=== PATIENT | male | born 1995 | race Caucasian/White ===

== ENCOUNTER 2021-05-29 18:59 | Emergency (ER) | payer OTHER, MEDICAID ==
--- NOTE | 2021-05-29 19:00 | NUR ---
BROUGHT IN BY [facility] TO BOOK AND BLOOD DRAW, PT REFUSED TO SIGN FOR BLOOD DRAW. PT REFUSED TO GIVE ANY INFORMATION, REFUSED ALL VITALS.
--- NOTE | 2021-05-29 19:15 | NUR ---
Patient given written and verbal discharge instructions and verbalizes understanding. ER MD discussed with patient the results and treatment provided. Patient in stable condition. ID arm band removed. Patient educated on pain management and to follow up with PMD. Pain Scale 0/10 Opportunity for questions provided and answered.
--- NOTE | 2021-05-29 19:15 | NUR ---
Pt with P officer at bedside stated to ED Staff and Dr. Sofia that he is not to be exam-d, eval-d, and treated in any way. Therefore Dr. Sofia cannot OK to book him. and will only ask him to see a doctor that he trusts [facility]
== END 2021-05-29 19:15 ==
LOC: SED 18:59
DX: Z04.1 Encounter for examination and observation following transport accident (principal); V49.49XA Driver injured in collision with other motor vehicles in traffic accident, initial encounter; Y93.89 Activity, other specified; Y92.89 Other specified places as the place of occurrence of the external cause; Y99.8 Other external cause status
CPT/HCPCS: 99283